=== PATIENT | female | born 1970 | race Caucasian/White ===

== ENCOUNTER 2020-01-02 05:47 | Day surgery (SDC) | payer BC ==
--- NOTE | 2019-12-30 11:18 | HP ---
PATIENT: SHERWIN TURNER MEDICAL RECORD: [id number] ACCOUNT: [id number] LOCATION:[facility] : 74 ADMISSION DATE: 01/02/20 PCP: HISTORY AND PHYSICAL EXAMINATION HISTORY OF PRESENT ILLNESS: Ms. Turner is a 49-year-old female with chronic pharyngitis symptoms, recurrent infections, obstructive tonsillar hypertrophy, persistent throat pain. She is being admitted for tonsillectomy as well as right myringotomy and tube and direct laryngoscopy, biopsy. PAST MEDICAL HISTORY: Otherwise negative. PAST SURGICAL HISTORY: Cervical disk. CURRENT MEDICATIONS: Lamictal, Paxil. ALLERGIES: SULFA. PHYSICAL EXAMINATION: GENERAL: She is healthy, developmentally normal. FACE: Normal, symmetric, no lesions. EYES: Sclerae and conjunctivae are normal. EARS: Both ears have some chronic changes, but the right ear has got retraction, incudostapediopexy and flat B tympanogram. NOSE: No mass, polyps or drainage. ORAL CAVITY AND OROPHARYNX: A 3+ cryptic tonsils and tonsilliths. NECK: No masses, no adenopathy. CHEST: Clear. CARDIOVASCULAR: Regular rate and rhythm, no murmur. EXTREMITIES: Normal. IMPRESSION: Chronic tonsillitis, tonsillar hypertrophy, right chronic serous otitis media and persistent throat pain. She is a smoker. PLAN: Laryngoscopy biopsy, tonsillectomy, right myringotomy and tube. TRANSINT:[id number] Voice Confirmation ID: [id number] DOCUMENT ID: [id number] SALVADOR MCCANN MD at 1118 CC: [id number] DICTATION DATE: 12/29/1952 KITCHEN ASSISTANT: 12/29/19 0958 PRE [facility] [address] [id number]
[~2020-01-02] VITALS: Ht 165.1 cm; Wt 109.3 kg
--- NOTE | ~2020-01-02 | OP ---
PATIENT NAME: SHERWIN TURNER MEDICAL RECORD: [id number] :74 LOCATION:[facility] ADMISSION DATE: SURGEON: SALVADOR MCCANN MD DATE OF OPERATION: 01/02/2020 PREOPERATIVE DIAGNOSES: Chronic tonsillitis, chronic right serous otitis media, and throat pain. POSTOPERATIVE DIAGNOSES: Chronic tonsillitis, chronic right serous otitis media, and throat pain. PROCEDURE: Direct laryngoscopy, rigid esophagoscopy, right myringotomy with tube, and tonsillectomy. SURGEON: Salvador Mccann MD ANESTHESIA: General orotracheal. BLOOD LOSS: Less than 5 cc. SPECIMENS: Right and left tonsil. TUBES: Garcia tube in the right ear. COMPLICATIONS: None. DISPOSITION: Recovery stable. SPECIMENS: Right and left tonsil. FINDINGS: Direct laryngoscopy was negative. Rigid esophagoscopy was negative. Right middle ear had a straw colored serous effusion, but normal TM and middle ear mucosa. Tonsils 3+, chronically infected caseous tonsils, lot of tonsillith and both tonsils looked the same. Examination of the nasopharynx completely normal. DESCRIPTION OF PROCEDURE: She was brought to the operating room and placed in supine position, sedated and intubated by anesthesia. Right ear was examined under the microscope. Cerumen was cleaned with a curet. Canal was normal. TM was normal. There was an obvious francisca effusion. A radial anterior inferior myringotomy was made. Effusion was suctioned with a #5 suction and the middle ear was evacuated, everything looked normal. A Garcia tube was placed followed by Floxin drops and a cotton ball. The left ear was examined. Cerumen was cleaned with a curette. The canal and TM were perfectly normal. No retraction, no middle ear effusion. The table was turned 90 degrees. Head drape was applied. She was positioned for endoscopy. Plastic upper tooth guard was placed and using a headlight, the oral cavity, floor of mouth, base of tongue were palpated. Tonsils were palpated. The palate was palpated. Everything was examined other than the large, chronically infected appearing tonsils that were symmetric. There were nothing identified. Then, a Kleinsasser J laryngoscope was inserted. It was used to examine the posterior pharyngeal wall, lateral pharyngeal hdz, below the tonsils, the base of tongue, vallecula, supraglottic larynx, both piriforms, post-cricoid area, the cords, AE folds, false cords and the subglottis and postcricoid area and esophageal inlet, everything completely unremarkable. No lesions, masses or OPERATIVE REPORT [id number] SHERWIN TURNER inflammation. Nothing at all to biopsy. The Kleinsasser J laryngoscope was removed. The cervical esophagoscope was inserted easily went into the esophageal inlet and down to the mid esophagus completely unremarkable, normal esophagus that was removed. Then, the Hussein-Ge mouth gag was inserted and elevated on a towel on her chest. The palate was examined and palpated. Again, the tonsils were evaluated, both symmetric, just chronic tonsillitis. The red rubber catheter was placed in the right side of the nose into the pharynx and grasped with tonsil clamp to retract the soft palate. Using a mirror, the nasopharynx was examined and it was completely smooth and normal fossa of Rosenmuller, very clear open symmetric. The torus was normal bilaterally. No drainage or inflammation. The choanae, posterior septum, turbinates, all completely normal. Completely normal nasopharyngeal exam. No inflammation or erythema at all. The red rubber catheter was let down and removed. The right tonsil was grasped at the superior pole with a straight Allis clamp. Spatula tip cautery on a setting of 8 was used to dissect out the tonsil along its capsule, preserving the anterior and posterior tonsillar pillar. There was copious tonsilliths, but otherwise unremarkable. The left tonsil was removed in the same fashion with exactly the same. Both sides of the nose were irrigated with saline. The pharynx was suctioned. Tonsillar fossae were agitated. Suction cautery on a setting of 18 was used to control minimal oozing on both sides with the field completely clean and dry, the Hussein-Ge mouth gag was let down and removed. She was awakened, extubated, and transported to recovery in good condition. No complications. TRANSINT:[id number] Voice Confirmation ID: [id number] DOCUMENT ID: [id number] SALVADOR MCCANN MD CC: [id number] DICTATION DATE: 01/02/20 1041 [employer] CONTACT: 01/02/20 1600 [facility] 01/02/20 [facility] [address] [place] [address]
[~2020-01-02 05:47] MED LIST: LAMICTAL200 M1 PO; LISINOPRIL20 MG PO; PROZAC20 MG PO
[2020-01-02 06:20] LABS: HEMATOCRIT 45.1 % (36.0-48.0); HEMOGLOBIN 14.6 g/dL (12-16); MCH 31.1 pg (26.0-34.0); MCHC 32.4 g/dL (31.0-37.0); MCV 96.2 fL (80.0-100.0); MEAN PLATELET VOLUME 9.4 fL (7.4-10.4); RBC 4.69 10x6/uL (4.00-5.40); RDW 14.4 % (11.5-14.5); WBC 9.7 10x3/uL (4.8-10.8)
[2020-01-02 06:24] LABS: HCG SERUM NEGATIVE (NEGATIVE)
[2020-01-02 06:58] VITALS: BP 136/85; Ht 165.1 cm; Wt 109.3 kg
== END 2020-01-02 12:27 | disposition home or self-care (01) ==
LOC: D.OPS 05:47 → D.PAN 08:30 → D.OPS 08:30
PROVIDERS: Anesthesiology; ATTEND Otolaryngology
DX: J35.01 Chronic tonsillitis (principal); H65.21 Chronic serous otitis media, right ear; R07.0 Pain in throat; Z72.0 Tobacco use